=== PATIENT | female | born 1965 | race Caucasian/White ===

== ENCOUNTER 2016-11-23 00:13 | Day surgery (SDC) | payer OTHER ==
[~2016-11-23] VITALS: Ht 170.2 cm; Wt 74.8 kg
[2016-11-23] MEDS ORDERED: fentaNYL-PF 50 mCg/mL 2 mL Inj IVPUSH PRN (06:00)
[2016-11-23] MEDS ORDERED: 0.9% Sodium Chloride 1,000 ML IV SCH (06:00)
[2016-11-23] MEDS ORDERED: Sodium Chloride LOK Flush 10 mL Syringe IV PRN (06:00)
[2016-11-23 08:14] VITALS: BP 125/86; PULSE 91; O2SAT 97
[2016-11-23 09:03] VITALS: BP 113/74; PULSE 76; RESP 18; O2SAT 98
[2016-11-23 09:13] VITALS: BP 112/80; PULSE 95; O2SAT 99
[2016-11-23 09:27] VITALS: BP 128/82; PULSE 82; O2SAT 98
--- NOTE | 2016-11-23 09:27 | ENDO ---
[address] [address] ENDOSCOPY PROCEDURE PATIENT: SUSAN SQUIRES : 1965 MR#: [id number] ADMIT: 11/23/2016 JOB ID: [id number] DATE OF SERVICE: 11/23/2016 PRIMARY PROVIDER: GIRISH Grady PROCEDURE: 1. Colonoscopy. 2. Hot snare polypectomy. 3. Cold snare polypectomy. 4. Cold forceps polypectomy. INDICATIONS: A 51-year-old female who reports for colon cancer screening. EQUIPMENT: [employer] H 180 AL. SEDATION: 1. Versed 5 mg. 2. Fentanyl 100 mcg. COMPLICATIONS: None identified. BOWEL PREPARATION: Very adequate. PROCEDURE INFORMATION: After the risks and benefits were explained, written and verbal informed consent was obtained. The patient was brought into the endoscopy suite and placed into the left lateral decubitus position. Sedation was achieved as above. A digital rectal examination accomplished. Minimal internal hemorrhoids noted. The scope was introduced into the rectum and advanced under direct visualization to the level of the cecum, as identified by the appendiceal orifice and ileocecal valve. The scope was slowly withdrawn to carefully examine the mucosa for any defects or lesions. Multiple direct views were made through the dentate line for exclusion of pathology. The colon was decompressed. The scope removed from the patient who tolerated the procedure well. FINDINGS: In the cecum, there was an approximately 8 mm polyp sessile removed with hot snare. In the ascending colon, there was a diminutive polyp removed with cold forceps and a slightly larger polyp removed with cold snare. In the sigmoid, there was a diminutive polyp perhaps 3 or 4 mm removed with cold forceps. These were submitted as "colon polyps". There were some mild diverticulosis in the left colon. No other pathology was appreciated throughout. ENDOSCOPIC DIAGNOSES: 1. Diverticulosis. 2. Colon polyps. 3. Mild internal hemorrhoids. RECOMMENDATIONS: 1. Await histopathology. 2. Repeat colonoscopy in three years if there are more than two of these polyps returning adenomatous.
--- NOTE | 2016-11-25 13:20 | PATH ---
SURGICAL PATHOLOGY Attending Physician:[place] CASE STATUS: Signed Out PATIENT NAME: SUSAN SQUIRES PID: [id number] : 1965 DATE COLLECTED:11/23/2016 16:14 SPECIMEN: Colon, Polyp CLINICAL HISTORY: 1). COLON POLYPS X4 FINAL DIAGNOSIS: 1.COLON POLYPS, BIOPSIES: - Tubular adenoma in 6 of 8 fragments. - One fragment of colonic mucosa with no diagnostic abnormality, consistent with polypoid redundancy. - One fragment of colonic mucosa with fibrosis of the lamina propria, likely prolapse type features, negative for dysplasia and malignancy. ICD10 D12.6 GROSS DESCRIPTION: The specimen is received in one formalin filled container labeled with the patient's name, sublabeled "colon polyps x4" and consists of multiple portions of tissue which aggregate to 0.6 x 0.4 x 0.3 CM. The specimen is entirely submitted in one cassette. 11/23/2016DC MICRO DESCRIPTION: See diagnosis. ICD-9 CODES: CPT CODES: 1: 72443 Electronically Signed Out Karthik Valladares MD [facility] [address], [place] [address] Technical component performed at [facility], [address] [place] [address] Ave[address], [place], [address]
== END 2016-11-23 23:59 | disposition home or self-care (01) ==
LOC: END 00:13
PROVIDERS: ATTEND Internal Medicine Gastroenterology
DX: Z12.11 Encounter for screening for malignant neoplasm of colon (principal); D12.0 Benign neoplasm of cecum; D12.2 Benign neoplasm of ascending colon; D12.5 Benign neoplasm of sigmoid colon; K57.30 Diverticulosis of large intestine without perforation or abscess without bleeding; K64.8 Other hemorrhoids; E78.4 Other hyperlipidemia; J30.9 Allergic rhinitis, unspecified; Z87.891 Personal history of nicotine dependence
CPT/HCPCS: 45380; 45385; 99153; G0500; J2250; J3010; J7030